=== PATIENT | female | born 1960 | race Hispanic/Latino ===

== ENCOUNTER 2017-02-27 10:53 | Emergency (ER) | payer MEDICARE, OTHER ==
[2017-02-27 11:02] VITALS: TEMP 98.2
[2017-02-27 11:37] LABS: BASO # 0.1 K/uL (0.0-0.2); BASO % 1.4 % (0.0-2.0); EOS # 0.2 K/uL (0.0-0.7); EOS % 1.6 % (0.0-4.0); HEMATOCRIT 33.2 % (34.0-47.0); LYMPH # 1.2 K/uL (1.0-4.3); LYMPH % 12.7 % (20.0-40.0); MEAN CELL VOLUME 96.1 fL (81.0-99.0); MEAN CORPUSCULAR HEMOGLOBIN 31.8 pg (27.0-31.0); MEAN CORPUSCULAR HGB CONC 33.1 g/dL (33.0-37.0); MEAN PLATELET VOLUME 7.9 fL (7.2-11.7); MONO # 0.7 K/uL (0.0-0.8); MONO % 7.1 % (0.0-10.0); NRBC % 0.1 % (0.0-2.0); RED CELL DISTRIBUTION WIDTH 14.7 % (11.5-14.5); WHITE BLOOD COUNT 9.5 K/uL (4.8-10.8)
[2017-02-27 11:44] LABS: INR 1.2
[2017-02-27 11:45] LABS: POTASSIUM 4.4 mmol/L (3.6-5.2)
[2017-02-27 11:47] LABS: ALB/GLOB RATIO 0.9 (1.0-2.1); BILIRUBIN,TOTAL 0.8 mg/dL (0.2-1.3); TOTAL PROTEIN 8.2 g/dL (6.3-8.3)
[2017-02-27 11:48] LABS: CALCIUM 8.3 mg/dl (8.6-10.4)
[2017-02-27 11:57] VITALS: BP 165/51; PULSE 88; RESP 17; O2SAT 99
--- NOTE | 2017-02-27 12:28 | C.PDOC ---
History Of Present Illness Patient is a 56 y/o female, whose past medical history includes ESRD on hemodialysis, that presents to the emergency department with complains of nose bleed that began at 9:30 this morning. Pt states she was unable to stop the bleeding at home which prompted her to visit emergency department. Pt admits to being on unknown blood thinner. In addition, pt is compliant with dialysis , last dialysis was yesterday. Pt denies any trauma, headache, dizziness, chest pain, lightheadedness, difficulty breathing, or any other associated symptoms at this time. Pt notes chronic abdominal hernia. Pt denies any other bleeding or bruising. Time Seen by Provider: 02/27/17 11:03 Chief Complaint (Nursing): ENT Problem History Per: Patient History/Exam Limitations: None Onset/Duration Of Symptoms: Hrs Current Symptoms Are (Timing): Still Present Severity: None Pain Scale Rating Of: 0 Anticoagulant/Antiplatlet Use?: Unknown Recent Aspirin Use: Unknown Past Medical History Reviewed: Historical Data, Nursing Documentation, Vital Signs Vital Signs: Last Vital Signs Temp 98.2 F 02/27/17 10:56 Pulse 88 02/27/17 11:56 Resp 17 02/27/17 11:56 BP 165/51 H 02/27/17 11:56 Pulse Ox 99 02/27/17 13:05 - Medical History PMH: HTN, End Stage Renal Disease Family History: States: Unknown Family Hx - Social History Hx Alcohol Use: No Hx Substance Use: No - Immunization History Hx Tetanus Toxoid Vaccination: No Hx Influenza Vaccination: Yes Hx Pneumococcal Vaccination: No Review Of Systems Except As Marked, All Systems Reviewed And Found Negative. Constitutional: Negative for: Fever, Chills ENT: Positive for: Nose Discharge (epistaxis). Negative for: Nose Pain, Nose Congestion Cardiovascular: Negative for: Chest Pain, Light Headedness Respiratory: Negative for: Shortness of Breath Neurological: Negative for: Headache, Dizziness Physical Exam - Physical Exam Appears: Non-toxic, No Acute Distress Skin: Dry, No Ecchymosis, Other (chronic skin thicknning to bilateral lower extremities, no erythema or warmth (pt notes this is baseline)) Head: Atraumatic, Normacephalic Eye(s): bilateral: Normal Inspection, EOMI Nose: Epistaxis (mild oozing from right nare), No Deformity, No Tenderness, No Septal Hematoma Oral Mucosa: Moist Throat: Normal, No Erythema, No Exudate Neck: Normal ROM, Supple Chest: Symmetrical Cardiovascular: Rhythm Regular Respiratory: Normal Breath Sounds, No Rales, No Rhonchi, No Wheezing Gastrointestinal/Abdominal: Soft, No Tenderness, Hernia (large non-tender abdominal hernia), Other (obese) Back: No CVA Tenderness, No Vertebral Tenderness Extremity: Normal ROM, No Tenderness, Capillary Refill (< 2 sec.), No Deformity , No Swelling Extremity: Bilateral: Atraumatic Pulses: Left Dorsalis Pedis: Normal, Right Dorsalis Pedis: Normal Neurological/Psych: Oriented x3, Normal Speech, Normal Motor, Normal Sensation ED Course And Treatment - Laboratory Results Result Diagrams: 02/27/17 11:30 02/27/17 11:30 O2 Sat by Pulse Oximetry: 99 Progress Note: Labs ordered and reviewed. Labs are consistent to her baseline, no acute findings at this time. Nasal bleeding controlled from the right nare. Pressure was applied. The patient was observed following procedure and no repeat episode of bleeding was noted. Patient tolerated the procedure well with no immediate complications. Case was discussed with Dr. Gonzalez, who evaluted labs and agrees with plan and discharge. Patient is being discharged home with instructions to apply pressure to the area, and to follow up with PMD in1 -2 days. Disposition - Disposition Referrals: Hamilton Chandra MD [Staff Provider] - Disposition: HOME/ ROUTINE Disposition Time: 12:27 Condition: CRITICAL Additional Instructions: Apply pressure to the area. Follow up with you doctor in 1-2 days. Return to ER if symptoms persist or worsen. Instructions: Nosebleed (ED) - Clinical Impression Clinical Impression: Epistaxis - PA / SCIENCE LIAISON / Resident Statement MD/DO has reviewed & agrees with the documentation as recorded. - Scribe Statement The provider has reviewed the documentation as recorded by the Meganibe Roberto Payne All medical record entries made by the Meganibsae were at my direction and personally dictated by me. I have reviewed the chart and agree that the record accurately reflects my personal performance of the history, physical exam, medical decision making, and the department course for this patient. I have also personally directed, reviewed, and agree with the discharge instructions and disposition.
== END 2017-02-27 13:08 | disposition home or self-care (01) ==
LOC: C.ER 10:53
DX: R04.0 Epistaxis (principal); I12.0 Hypertensive chronic kidney disease with stage 5 chronic kidney disease or end stage renal disease; N18.6 End stage renal disease